=== PATIENT | female | born 1950 | race Two or more races ===

== ENCOUNTER 2020-07-27 14:26 | Outpatient (CLI) | payer OTHER ==
[~2020-07-27 14:26] MED LIST: ASMANEX0.24 G1 IH; COZAAR100 MG PO; FORADIL12 MCG IH; PROVENTIL2.5 MG/3 M; SYMBICORT 16010.2 GM
== END 2020-07-27 15:20 | disposition home or self-care (01) ==
LOC: OFIC 805 14:26
PROVIDERS: ATTEND Otolaryngology
DX: H92.03 Otalgia, bilateral (principal); H90.3 Sensorineural hearing loss, bilateral; H61.23 Impacted cerumen, bilateral